=== PATIENT | male | born 1990 | race African-American/Black ===

== ENCOUNTER 2018-06-06 14:54 | Inpatient (IN) | payer BC, SELFPAY ==
[2018-06-06] MEDS ORDERED: CEFAZOLIN 2 GM/50 ML BAG ONE (15:01)
[2018-06-06] MEDS ORDERED: ISOVUE-370 76%-LOCM 1 ML ONE (15:06)
[2018-06-06 15:10] LABS: Actual Bicarbonate (HCO3a) 16.3 mEq/L (22-28); Analyzer IN Cardio ER; Base Excess (BEa) -11.8 mEq/L (-2.0 to +3.0); CO2 Tension 44.9 mmHg (35.0-45.0); Calcium, Ionized 1.17 mmol/L (1.12-1.30); Carboxyhemoglobin (COHb) 2.7 gm% (0.0-3.0); Potassium - ABG Lab 2.99 mmol/L (3.70-5.30)
[2018-06-06 15:25] LABS: #Basophils 0.1 thou/uL (0.0-0.2); #Eosinphils 0.2 thou/uL (0.0-0.7); #Lymphocytes 2.7 thou/uL (1.20-3.40); #Monocytes 0.3 thou/uL (0.11-0.59); #Neutrophils 12.7 thou/uL (1.40-6.50); %Basophils 0.3 % (0.0-1.0); %Lymphocytes 17.2 % (21.0-51.0); %Neutrophils 79.5 % (42.0-75.0); Hemoglobin 15.6 g/dL (14.0-18.0); Mean Corpuscular HGB CONC 33.4 g/dL (32.0-36.0); Mean Corpuscular Hemoglobin 30.1 pg (27.0-31.0); Mean Platelet Volume 8.9 fL (7.4-10.4); Platelet Count 281 thou/uL (130-400); RBC Distribution Width 12.2 % (11.5-14.5); White Blood Cell (WBC) Count 15.9 thou/uL (4.8-10.8)
[2018-06-06 15:31] LABS: INR-International Normal Ratio 1.3; PTT 29.7 SEC (22.9-36.1); Prothrombin Time 16.4 SEC (12.0-14.7)
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
[2018-06-06] MEDS ORDERED: Fentanyl 100 MCG/2 ML VIAL ONE ×2 (15:38→17:44)
[2018-06-06] MEDS ORDERED: fentaNYL Citrate/PF 2,000 MCG in Sodium Chloride 0.9% 60 ML IV SCH ×2 (15:38→15:56)
[2018-06-06] MEDS ORDERED: Ondansetron PF 4 MG/2 ML Vial IVP PRN (15:43)
[2018-06-06] MEDS ORDERED: Dextrose 50% Abboject 50 ML SYRINGE SLOW IVP PRN (15:43)
[2018-06-06] MEDS ORDERED: Dextrose 5% in Water 1,000 ML IV PRN (15:43)
[2018-06-06 15:52] LABS: ALT (SGPT) 807 U/L (8-55); AST (SGOT) 1011 U/L (5-34); Albumin 4.2 g/dL (3.5-5.0); Alkaline Phosphatase 70 U/L (40-150); Anion Gap 22 mmol/L (10-20); BUN (Urea Nitrogen) 4 mg/dL (8.9-20.6); Calc. Creatinine Clearance 0 mL/min (70-130); Calcium 9.1 mg/dL (7.8-10.44); Carbon Dioxide 18 mmol/L (22-29); Chloride 106 mmol/L (98-107); Estimated GFR-MDRD 45; Glucose 173 mg/dL (70-105); Potassium 3.8 mmol/L (3.5-5.1); Protein, Total 7.2 g/dL (6.0-8.3); Sodium 142 mmol/L (136-145)
[2018-06-06 15:53] LABS: Bilirubin Negative (Negative); Blood, Urine Large (Negative); Glucose, Urine (Dipstick) Negative (Negative); Leukocyte Negative (Negative); Nitrite Negative (Negative); Protein, Urine (Dipstick) 30 mg/dL (Neg-Trace); Urobilinogen 0.2 mg/dL (0.2-1.0)
[2018-06-06 15:55] LABS: Clarity Hazy (Clear)
[2018-06-06] MEDS ORDERED: Lorazepam 2 MG/ML VIAL SLOW IVP PRN (15:56)
[2018-06-06] MEDS ORDERED: Propofol 1,000 MG/100 ML VIAL IV PRN (15:56)
[2018-06-06] MEDS ORDERED: Morphine 2 MG/ML SYRINGE SLOW IVP PRN (15:56)
[2018-06-06] MEDS ORDERED: Fentanyl BOLUS 250 ML IVPB PRN (15:56)
[2018-06-06] MEDS ORDERED: DISCONTINUE PREVIOUS NARCOTIC PAIN MEDICATIONS AND BENZODIAZEPINES FS SCH (15:56)
[2018-06-06] MEDS ORDERED: Propofol BOLUS 1,000 MG/100 ML VIAL IV PRN (15:56)
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
[2018-06-06] MEDS ORDERED: Ventilator Sedation Protocol 1 EACH FS SCH (16:00)
[2018-06-06 16:03] LABS: Bacteria/HPF 3+ HPF (None Seen); Hyaline Casts/LPF NONE SEEN LPF (0-3 Hyaline); RBC/HPF GREATER THAN 50-TNTC HPF (0-3); Renal Epithelial 0-3 HPF (0-3); Squamous Epithelial 0-3 HPF (0-3); Transitional Epithelial NONE SEEN HPF (0-3); WBC/HPF 0-3 HPF (0-3)
[2018-06-06] MEDS ORDERED: Midazolam HCl 2 mg/2 ml Vial ONE ×2 (16:04→16:45)
[2018-06-06 16:08] LABS: Actual Bicarbonate (HCO3a) 14.1 mEq/L (22-28); Analyzer IN Cardio ER; CO2 Tension 30.2 mmHg (35.0-45.0); Calcium, Ionized 1.16 mmol/L (1.12-1.30); Carboxyhemoglobin (COHb) 2.3 gm% (0.0-3.0); Hemoglobin (Hb) 16.1 g/dL (14.0-18.0); O2 Tension (PaO2) 249.8 mmHg (80.0-100.0); Potassium - ABG Lab 3.02 mmol/L (3.70-5.30); pH, Arterial 7.29 (7.35-7.45)
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
[2018-06-06 16:14] LABS: Puncture Site RR
[2018-06-06 16:16] LABS: ALV-art Gradient 214.875 (0-20); Puncture Site RR; pH, Arterial 7.18 (7.35-7.45)
[2018-06-06] MEDS ORDERED: Propofol 1,000 MG/100 ML VIAL IV ONE (16:18)
[2018-06-06 16:25] LABS: Hemoglobin 15.9 g/dL (14.0-18.0)
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
--- NOTE | 2018-06-06 17:08 | RAD ---
CHEST 1 VIEW: Date: 06/06/18 HISTORY: Tube placement. COMPARISON: Chest radiograph same day. FINDINGS: Marked interval size decrease of left-sided pneumothorax with interval placement of the thoracostomy tube in good position. Small volume pneumomediastinum. Enteric tube side port below the GE junction. IMPRESSION: 1. Marked interval size decrease of the left pneumothorax. 2. Trace right apical pneumothorax. POS: [facility]
[2018-06-06] MEDS ORDERED: Bupivacaine/Epinephrine 0.25% 30 ML VIAL ONE (17:52)
[2018-06-06] MEDS: Sodium Chloride 0.9% 1,000 ML IV SCH ×2 (17:53→22:34)
[2018-06-06 17:58] VITALS: BMI 24.9
[2018-06-06] MEDS ORDERED: Phenylephrine HCL 10 MG/ML VIAL ONE (18:34)
[2018-06-06] MEDS ORDERED: PHENYLEPHRINE-NS 100 MCG/ML 10 ML SYRINGE ONE ×2 (18:34→22:23)
[2018-06-06] MEDS ORDERED: Promethazine HCl 25 MG/ML VIAL IM/IV PRN (18:48)
[2018-06-06] MEDS ORDERED: Famotidine/PF 20 mg/2ml Vial SLOW IVP SCH (21:00)
[2018-06-06] MEDS ORDERED: CEFAZOLIN/Water 2 GM/20 ML SYRINGE SLOW IVP SCH (22:15)
[2018-06-06] MEDS ORDERED: Sterile Water 10 ML VIAL ONE (22:23)
[2018-06-06] MEDS ORDERED: Vecuronium 10 MG VIAL ONE (22:23)
[2018-06-06 22:26] LABS: Hemoglobin 13.9 g/dL (14.0-18.0)
[2018-06-06] MEDS: CEFAZOLIN 2 GM/50 ML-DEXTROSE 2 GM in Premix Bag 1 BAG IVPB SCH (22:34)
[2018-06-06 22:36] LABS: Actual Bicarbonate (HCO3a) 15.2 mEq/L (22-28); Base Excess (BEa) -9.6 mEq/L (-2.0 to +3.0); CO2 Tension 30.5 mmHg (35.0-45.0); Calcium, Ionized 1.12 mmol/L (1.12-1.30); Carboxyhemoglobin (COHb) 1.2 gm% (0.0-3.0); Hemoglobin (Hb) 13.5 g/dL (14.0-18.0); O2 Tension (PaO2) 100.2 mmHg (80.0-100.0); Potassium - ABG Lab 4.27 mmol/L (3.70-5.30); pH, Arterial 7.32 (7.35-7.45)
[2018-06-06 22:37] LABS: ALV-art Gradient 218.175 (0-20); Puncture Site RBR
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
[2018-06-07] MEDS ORDERED: Sodium Chloride 0.9% 1,000 ML IV SCH (05:15)
[2018-06-07 05:23] LABS: #Lymphocytes 1.4 thou/uL (1.20-3.40); #Monocytes 1.4 thou/uL (0.11-0.59); #Neutrophils 13.7 thou/uL (1.40-6.50); %Basophils 0.1 % (0.0-1.0); %Eosinophils 0.3 % (0.0-10.0); %Lymphocytes 8.2 % (21.0-51.0); %Monocytes 8.5 % (0.0-10.0); %Neutrophils 82.9 % (42.0-75.0); Hemoglobin 13.1 g/dL (14.0-18.0); Mean Corpuscular HGB CONC 33.7 g/dL (32.0-36.0); Mean Corpuscular Hemoglobin 30.3 pg (27.0-31.0); Mean Corpuscular Volume 89.9 fL (78.0-98.0); Platelet Count 240 thou/uL (130-400); RBC Distribution Width 12.4 % (11.5-14.5); Red Blood Cell (RBC) Count 4.34 mill/uL (4.70-6.10); White Blood Cell (WBC) Count 16.6 thou/uL (4.8-10.8)
[2018-06-07] MEDS: CEFAZOLIN 2 GM/50 ML-DEXTROSE 2 GM in Premix Bag 1 BAG IVPB SCH ×3 (05:24→21:47)
[2018-06-07] MEDS: Ampicillin/Sulbactam 3 GM in Sodium Chloride 0.9% 100 ML IVPB SCH ×3 (05:26→17:55)
[2018-06-07 05:58] LABS: ALT (SGPT) 562 U/L (8-55); AST (SGOT) 800 U/L (5-34); Albumin 3.2 g/dL (3.5-5.0); Alkaline Phosphatase 51 U/L (40-150); Anion Gap 17 mmol/L (10-20); BUN (Urea Nitrogen) 13 mg/dL (8.9-20.6); Bilirubin, Total 1.4 mg/dL (0.2-1.2); Calc. Creatinine Clearance 56 mL/min (70-130); Carbon Dioxide 19 mmol/L (22-29); Chloride 111 mmol/L (98-107); Estimated GFR-MDRD 42; Globulin 2.1 g/dL (2.4-3.5); Glucose 157 mg/dL (70-105); Potassium 4.7 mmol/L (3.5-5.1); Protein, Total 5.3 g/dL (6.0-8.3); Sodium 142 mmol/L (136-145)
[2018-06-07 07:11] LABS: Actual Bicarbonate (HCO3a) 20.6 mEq/L (22-28); Base Excess (BEa) -2.9 mEq/L (-2.0 to +3.0); CO2 Tension 31.8 mmHg (35.0-45.0); Carboxyhemoglobin (COHb) 0.7 gm% (0.0-3.0); O2 Tension (PaO2) 121.8 mmHg (80.0-100.0); Potassium - ABG Lab 4.46 mmol/L (3.70-5.30); pH, Arterial 7.43 (7.35-7.45)
[2018-06-07 07:32] LABS: Puncture Site RBA
[2018-06-07] MEDS: Sodium Chloride 0.9% 1,000 ML IV SCH ×2 (09:02→19:40)
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
[2018-06-07] MEDS: Famotidine/PF 20 mg/2ml Vial SLOW IVP SCH (09:05)
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
[2018-06-07 09:40] LABS: Hemoglobin 12.2 g/dL (14.0-18.0)
--- NOTE | 2018-06-07 10:34 | OP ---
DATE OF PROCEDURE: 06/06/2018 PROCEDURE PERFORMED: Left thoracostomy tube placement. Consent is emergent secondary to acute respiratory failure and sedation, and mechanical ventilation. INDICATION: 1. Left pneumothorax. 2. Tension pneumothorax. Performed by Sanya Chacko PA-C DESCRIPTION OF PROCEDURE: The patient was draped and prepped according to the sterile fashion, hand hygiene was observed. The skin was cleaned with 4% chlorhexidine wash. It was not able to completely dry as to the emergent nature of the procedure and the patient's decompensation. Sterile gown and gloves were donned. Appropriate left mid axillary site was selected. A linear incision was made over the rib at the nipple line with a #10 blade. The pleural cavity was entered with Brittaney forceps and a tract was created. I was able to insert my finger and verify a good tract into the thoracic space with no obstructive physiology. At that time, a 36 -Armenian thoracostomy tube was inserted into tract with immediate air return and condensation and the tube was secured with 2 sutures at 14 cm. This was connected to atrium and placed to suction where an active air leak was noted. The tube again was secured in place. Iodoform gauze was placed around this as well as bulky dressing and taped to the chest wall. The patient tolerated the procedure well. Confirmation of tube placement was obtained by CT chest. The patient's hemodynamics immediately improved after the chest tube placement. Estimated blood loss was less than 5 mL from this procedure. The patient tolerated well. Job ID: [id number] MTDD
[2018-06-07] MEDS ORDERED: diphenhydrAMINE 50 MG/ML VIAL IM/IV PRN (13:20)
[2018-06-07] MEDS ORDERED: Zolpidem Tartrate 5 MG TAB PO PRN (13:20)
[2018-06-07] MEDS ORDERED: Naloxone HCl 0.4 mg/ml Vial IV PRN (13:20)
[2018-06-07] MEDS ORDERED: fentaNYL Citrate/PF 2,000 MCG in Sodium Chloride 0.9% 60 ML IV PRN (13:20)
[2018-06-07] MEDS ORDERED: Promethazine HCl 25 MG/ML VIAL IM PRN (13:20)
[2018-06-07] MEDS ORDERED: diphenhydrAMINE 25 MG CAP PO PRN (13:20)
[2018-06-07] MEDS ORDERED: Ondansetron PF 4 MG/2 ML Vial IVP PRN (13:20)
--- NOTE | 2018-06-07 13:20 | RAD ---
LEFT HUMERUS TWO VIEWS: History: ORIF. Comparison: None. FINDINGS: Satisfactory post-operative appearance with intramedullary nail fixation of the mid humeral diaphysea l fracture. IMPRESSION: Satisfactory post-operative appearance. POS: [facility]
--- NOTE | 2018-06-07 13:21 | RAD ---
LEFT FEMUR: History: ORIF. Comparison: None. FINDINGS: Satisfactory post-operative appearance intramedullary nail placement through the femur. IMPRESSION: Satisfactory post-operative appearance. POS: [facility]
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
[2018-06-07 17:04] LABS: Hemoglobin 10.7 g/dL (14.0-18.0)
[2018-06-07] MEDS ORDERED: Lactated Ringer's 1,000 ML IV SCH (17:30)
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
[2018-06-08] MEDS: Ampicillin/Sulbactam 3 GM in Sodium Chloride 0.9% 100 ML IVPB SCH ×4 (00:21→18:14)
[2018-06-08 05:46] LABS: #Lymphocytes 1.1 thou/uL (1.20-3.40); #Monocytes 0.9 thou/uL (0.11-0.59); #Neutrophils 9.2 thou/uL (1.40-6.50); %Basophils 0.2 % (0.0-1.0); %Eosinophils 0.1 % (0.0-10.0); %Lymphocytes 9.7 % (21.0-51.0); %Monocytes 7.8 % (0.0-10.0); %Neutrophils 82.3 % (42.0-75.0); Hemoglobin 9.8 g/dL (14.0-18.0); Mean Corpuscular HGB CONC 33.3 g/dL (32.0-36.0); Mean Corpuscular Hemoglobin 30.1 pg (27.0-31.0); Mean Corpuscular Volume 90.4 fL (78.0-98.0); Mean Platelet Volume 8.6 fL (7.4-10.4); Platelet Count 121 thou/uL (130-400); RBC Distribution Width 12.2 % (11.5-14.5); Red Blood Cell (RBC) Count 3.27 mill/uL (4.70-6.10); White Blood Cell (WBC) Count 11.2 thou/uL (4.8-10.8)
[2018-06-08] MEDS: CEFAZOLIN 2 GM/50 ML-DEXTROSE 2 GM in Premix Bag 1 BAG IVPB SCH ×2 (05:51→14:35)
[2018-06-08] MEDS: Sodium Chloride 0.9% 1,000 ML IV SCH (05:51)
[2018-06-08 05:56] LABS: Anion Gap 9 mmol/L (10-20); BUN (Urea Nitrogen) 20 mg/dL (8.9-20.6); Calc. Creatinine Clearance 88 mL/min (70-130); Calcium 7.7 mg/dL (7.8-10.44); Carbon Dioxide 27 mmol/L (22-29); Chloride 110 mmol/L (98-107); Estimated GFR-MDRD 71; Glucose 136 mg/dL (70-105); Magnesium 1.4 mg/dL (1.6-2.6); Potassium 4.2 mmol/L (3.5-5.1); Sodium 142 mmol/L (136-145)
[2018-06-08] MEDS: Famotidine/PF 20 mg/2ml Vial SLOW IVP SCH (08:30)
[2018-06-08] MEDS ORDERED: Magnesium Sulfate 3 GM in Sodium Chloride 0.9% 100 ML IVPB SCH (09:30)
[2018-06-08] MEDS ORDERED: Potassium Phosphate 15 MMOL in Sodium Chloride 0.9% 250 ML 250 ML IVPB SCH (09:30)
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
[2018-06-08] MEDS ORDERED: Acetaminophen 500 MG TAB PO SCH ×2 (10:00→11:07)
[2018-06-08] MEDS: traMADol HCl 50 MG TAB PO SCH ×3 (10:35→21:14)
--- NOTE | 2018-06-08 10:49 | RAD ---
PORTABLE UPRIGHT FRONTAL CHEST: Date: 06/08/18 COMPARISON: 06/07/18. HISTORY: Respiratory failure. FINDINGS: There is a proximal left humerus fracture, status post open reduction and internal fixation. A stable left chest tube is in place. There is a small to moderate sized pneumothorax on the right, which has enlarged when compared to the 06/06/18 examination. There is hazy perihilar and bibasilar density suggesting nonspecific air space disease/volume loss, l eft greater than right, worsened. IMPRESSION: Worsening hazy nonspecific density in the lung bases, left greater than right. Enlarging right-sided pneumothorax. A call was made to Brennan, at the CCU, who reports that the trauma team is aware of the right-sided pneu mothorax. This phone call was made at 0924 hours on 06/08/18. CODE CR. POS: [facility]
[2018-06-08] MEDS: HYDROcodone/Acetaminophen 10/325 mg Tablet PO PRN (11:35)
[2018-06-08] MEDS: Ketorolac Tromethamine 30 MG/ML VIAL IVP SCH ×2 (13:20→17:39)
[2018-06-08] MEDS: Acetaminophen 325 MG TAB PO SCH ×2 (13:21→17:39)
[2018-06-08] MEDS: Gabapentin 300 MG CAP PO SCH ×2 (14:35→21:14)
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
--- NOTE | 2018-06-08 16:34 | RAD ---
PORTABLE CHEST: 06/08/18 COMPARISON: Earlier exam of same day. HISTORY: Followup of pneumothorax. Heart size appears slightly enlarged. Left sided chest tube remains in place. Left lung appears well expanded. Right sided moderate pneumothorax is present. Given the differences in technique, this is p robably fairly similar to the previous study. IMPRESSION: Stable appearance of the right sided pneumothorax. Stable overall exam. POS: [facility]
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
[2018-06-08] MEDS: Senokot S 8.6-50 MG TAB PO SCH (21:14)
[2018-06-09] MEDS: Acetaminophen 325 MG TAB PO SCH ×4 (00:21→18:37)
[2018-06-09] MEDS: Ampicillin/Sulbactam 3 GM in Sodium Chloride 0.9% 100 ML IVPB SCH ×4 (00:21→18:38)
[2018-06-09] MEDS: Ketorolac Tromethamine 30 MG/ML VIAL IVP SCH ×4 (00:21→18:37)
[2018-06-09] MEDS: HYDROcodone/Acetaminophen 10/325 mg Tablet PO PRN ×2 (00:58→13:10)
[2018-06-09] MEDS: traMADol HCl 50 MG TAB PO SCH ×4 (04:26→21:14)
[2018-06-09 05:19] LABS: ALT (SGPT) 137 U/L (8-55); AST (SGOT) 228 U/L (5-34); Albumin 2.6 g/dL (3.5-5.0); Alkaline Phosphatase 50 U/L (40-150); Anion Gap 8 mmol/L (10-20); BUN (Urea Nitrogen) 13 mg/dL (8.9-20.6); Bilirubin, Total 1.5 mg/dL (0.2-1.2); Calc. Creatinine Clearance 123 mL/min (70-130); Calcium 7.7 mg/dL (7.8-10.44); Carbon Dioxide 30 mmol/L (22-29); Chloride 105 mmol/L (98-107); Estimated GFR-MDRD Greater than 90; Globulin 2.5 g/dL (2.4-3.5); Glucose 113 mg/dL (70-105); Protein, Total 5.1 g/dL (6.0-8.3); Sodium 139 mmol/L (136-145)
[2018-06-09 05:23] LABS: #Eosinphils 0.1 thou/uL (0.0-0.7); #Monocytes 0.4 thou/uL (0.11-0.59); %Basophils 0.3 % (0.0-1.0); %Eosinophils 1.4 % (0.0-10.0); %Lymphocytes 13.7 % (21.0-51.0); %Monocytes 5.8 % (0.0-10.0); %Neutrophils 78.8 % (42.0-75.0); Hemoglobin 8.4 g/dL (14.0-18.0); Mean Corpuscular HGB CONC 33.6 g/dL (32.0-36.0); Mean Corpuscular Hemoglobin 30.7 pg (27.0-31.0); Mean Corpuscular Volume 91.4 fL (78.0-98.0); Mean Platelet Volume 8.5 fL (7.4-10.4); Platelet Count 74 thou/uL (130-400); RBC Distribution Width 11.8 % (11.5-14.5); Red Blood Cell (RBC) Count 2.72 mill/uL (4.70-6.10); White Blood Cell (WBC) Count 7.6 thou/uL (4.8-10.8)
[2018-06-09 05:25] LABS: Phosphorus 1.6 mg/dL (2.3-4.7)
[2018-06-09] MEDS ORDERED: Magnesium Sulfate 3 GM in Sodium Chloride 0.9% 100 ML IVPB SCH (07:45)
[2018-06-09] MEDS ORDERED: Potassium Phosphate 30 MMOL in Sodium Chloride 0.9% 500 ML IVPB SCH (08:00)
[2018-06-09] MEDS: Enoxaparin Sodium 40 MG/0.4 ML SYRINGE SC SCH ×2 (08:27→09:15)
[2018-06-09] MEDS: Polyethylene Glycol 3350 17 GM Packet PO SCH (08:28)
[2018-06-09] MEDS: Gabapentin 300 MG CAP PO SCH ×3 (08:28→20:51)
[2018-06-09] MEDS: Senokot S 8.6-50 MG TAB PO SCH ×2 (08:28→20:51)
[2018-06-09] MEDS: Famotidine/PF 20 mg/2ml Vial SLOW IVP SCH (08:28)
--- NOTE | 2018-06-09 09:47 | RAD ---
PORTABLE SEMIUPRIGHT FRONTAL CHEST RADIOGRAPH: Date: 06/09/18 COMPARISON: 06/08/18 at 1441 hours. HISTORY: Reevaluate pneumothorax. FINDINGS: There is a small to moderate size pneumothorax again noted on the right. Pneumothorax is unchanged wh en compared to 06/08/18 at 1441 hours. Bibasilar air space disease noted, left greater than right. Le ft chest tube in place. Postoperative hardware overlies the left humerus. IMPRESSION: Bibasilar air space disease, left greater than right. Persistent small to moderate right pneumothorax . Left chest tube in place. The trachea is noted to the left of midline, but the pneumothorax does no t appear significantly enlarged and perhaps shift of the mediastinal structures to the left is second marv to volume loss given dense opacity in the left base suggesting left lower lobe consolidation/nixon apse. POS: [facility]
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
[2018-06-10] MEDS: Acetaminophen 325 MG TAB PO SCH ×4 (00:34→17:52)
[2018-06-10] MEDS: Ketorolac Tromethamine 30 MG/ML VIAL IVP SCH ×4 (00:36→17:52)
[2018-06-10] MEDS: Ampicillin/Sulbactam 3 GM in Sodium Chloride 0.9% 100 ML IVPB SCH ×2 (00:37→06:17)
[2018-06-10] MEDS: traMADol HCl 50 MG TAB PO SCH ×4 (05:01→21:32)
[2018-06-10 06:35] LABS: #Eosinphils 0.1 thou/uL (0.0-0.7); #Monocytes 0.6 thou/uL (0.11-0.59); #Neutrophils 4.1 thou/uL (1.40-6.50); %Basophils 0.3 % (0.0-1.0); %Eosinophils 1.8 % (0.0-10.0); %Lymphocytes 17.8 % (21.0-51.0); %Monocytes 10.1 % (0.0-10.0); Hemoglobin 7.9 g/dL (14.0-18.0); Mean Corpuscular HGB CONC 33.6 g/dL (32.0-36.0); Mean Corpuscular Hemoglobin 30.4 pg (27.0-31.0); Mean Corpuscular Volume 90.5 fL (78.0-98.0); Mean Platelet Volume 8.4 fL (7.4-10.4); Platelet Count 76 thou/uL (130-400); RBC Distribution Width 11.7 % (11.5-14.5); White Blood Cell (WBC) Count 5.8 thou/uL (4.8-10.8)
[2018-06-10 06:49] LABS: Anion Gap 10 mmol/L (10-20); BUN (Urea Nitrogen) 11 mg/dL (8.9-20.6); Calc. Creatinine Clearance 153 mL/min (70-130); Calcium 8.2 mg/dL (7.8-10.44); Carbon Dioxide 26 mmol/L (22-29); Chloride 105 mmol/L (98-107); Estimated GFR-MDRD Greater than 90; Glucose 101 mg/dL (70-105); Magnesium 1.7 mg/dL (1.6-2.6); Phosphorus 2.2 mg/dL (2.3-4.7); Potassium 3.7 mmol/L (3.5-5.1); Sodium 137 mmol/L (136-145)
[2018-06-10] MEDS: Senokot S 8.6-50 MG TAB PO SCH ×2 (08:21→21:33)
[2018-06-10] MEDS: Gabapentin 300 MG CAP PO SCH ×3 (08:21→21:33)
[2018-06-10] MEDS: Famotidine/PF 20 mg/2ml Vial SLOW IVP SCH (08:21)
[2018-06-10] MEDS: Polyethylene Glycol 3350 17 GM Packet PO SCH (08:22)
[2018-06-10] MEDS: Enoxaparin Sodium 40 MG/0.4 ML SYRINGE SC SCH (08:30)
--- NOTE | 2018-06-10 09:55 | RAD ---
FRONTAL RADIOGRAPH CHEST: Date: 06/10/18 Time: 0845 hours COMPARISON: 06/09/18 at 0525 hours. HISTORY: Reevaluate pneumothorax. FINDINGS: There is a stable left-sided chest tube. Left pneumothorax has enlarged, now moderate in size, with c omponents involving the medial, superior, and lateral left lung apex, as well as the left costophreni c angle. There is a small apical pneumothorax on the right, improved. There is hazy nonspecific bibasilar air space disease. IMPRESSION: Enlarging left pneumothorax. Interval decrease in size of right pneumothorax. Charge nurse, Miranda Ivy, made aware at 0915 hours on 06/10/18. CODE CR. POS: [facility]
[2018-06-10] MEDS ORDERED: Piperacillin/Tazobactam 3.375 GM in Sodium Chloride 0.9% 100 ML IVPB SCH (12:00)
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
--- NOTE | 2018-06-10 18:11 | RAD ---
[id number] SINGLE VIEW CHEST: Date: 06/10/18 COMPARISON: 06/10/18. HISTORY: Chest tube placement for pneumothorax. FINDINGS: Single view of the chest shows normal sized cardiomediastinal silhouette. There is a left-sided chest tube. There has been reexpansion of the left lung with only a tiny left apical pneumothorax. Atelect asis is seen in the left lung base. Lung markings are not definitely seen in the right apex and a small right apical pneumothorax may als o be present. IMPRESSION: 1. Small left apical pneumothorax. 2. Possible small apical right pneumothorax. POS: [facility]
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
[2018-06-10] MEDS: Ascorbic Acid 500 mg Chewable Tablet PO SCH (21:33)
[2018-06-11] MEDS: Ketorolac Tromethamine 30 MG/ML VIAL IVP SCH ×3 (00:14→11:54)
[2018-06-11] MEDS: Acetaminophen 325 MG TAB PO SCH ×5 (00:14→23:51)
[2018-06-11] MEDS: traMADol HCl 50 MG TAB PO SCH ×4 (04:02→21:01)
[2018-06-11 05:55] LABS: #Eosinphils 0.2 thou/uL (0.0-0.7); #Monocytes 0.6 thou/uL (0.11-0.59); #Neutrophils 3.4 thou/uL (1.40-6.50); %Basophils 0.3 % (0.0-1.0); %Eosinophils 3.3 % (0.0-10.0); %Monocytes 11.3 % (0.0-10.0); Hemoglobin 8.1 g/dL (14.0-18.0); Mean Corpuscular HGB CONC 34.6 g/dL (32.0-36.0); Mean Corpuscular Hemoglobin 31.2 pg (27.0-31.0); Mean Platelet Volume 8.6 fL (7.4-10.4); Platelet Count 112 thou/uL (130-400); RBC Distribution Width 11.7 % (11.5-14.5); White Blood Cell (WBC) Count 5.2 thou/uL (4.8-10.8)
--- NOTE | 2018-06-11 08:19 | RAD ---
PORTABLE CHEST 1 VIEW: Date: 06/11/18 Time: 0543 hours HISTORY: Bilateral pneumothorax. FINDINGS/IMPRESSION: Comparison made with exam from previous day. Left-sided chest tube remains in place. No definite left-sided pneumothorax is seen. A tiny right api joaquín pneumothorax is noted. There is mild opacity at the right lung base. POS: [facility]
[2018-06-11] MEDS: Ascorbic Acid 500 mg Chewable Tablet PO SCH ×2 (08:33→20:07)
[2018-06-11] MEDS: Senokot S 8.6-50 MG TAB PO SCH ×2 (08:33→20:07)
[2018-06-11] MEDS: Gabapentin 300 MG CAP PO SCH ×3 (08:34→20:07)
[2018-06-11] MEDS: Enoxaparin Sodium 40 MG/0.4 ML SYRINGE SC SCH (08:34)
[2018-06-11] MEDS: Ferrous Sulfate 325 MG TAB PO SCH ×2 (08:34→17:51)
[2018-06-11] MEDS: Famotidine/PF 20 mg/2ml Vial SLOW IVP SCH (08:34)
[2018-06-11] MEDS: Polyethylene Glycol 3350 17 GM Packet PO SCH (08:34)
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
[2018-06-11] MEDS: Ibuprofen 600 MG TAB PO SCH (20:07)
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
[2018-06-12] MEDS: traMADol HCl 50 MG TAB PO SCH ×4 (03:17→21:40)
[2018-06-12] MEDS: Acetaminophen 325 MG TAB PO SCH ×4 (05:08→23:48)
[2018-06-12] MEDS: Gabapentin 300 MG CAP PO SCH ×3 (08:11→20:46)
[2018-06-12] MEDS: Ascorbic Acid 500 mg Chewable Tablet PO SCH ×2 (08:11→20:46)
[2018-06-12] MEDS: Ferrous Sulfate 325 MG TAB PO SCH ×2 (08:11→17:09)
[2018-06-12] MEDS: Enoxaparin Sodium 40 MG/0.4 ML SYRINGE SC SCH (08:12)
[2018-06-12] MEDS: Ibuprofen 600 MG TAB PO SCH ×3 (08:12→20:45)
[2018-06-12] MEDS: Famotidine/PF 20 mg/2ml Vial SLOW IVP SCH (08:13)
[2018-06-12] MEDS: Senokot S 8.6-50 MG TAB PO SCH ×2 (08:13→20:46)
[2018-06-12] MEDS: Polyethylene Glycol 3350 17 GM Packet PO SCH (08:14)
--- NOTE | 2018-06-12 09:46 | RAD ---
CHEST 1 VIEW: Date: 06/12/18 HISTORY: Left-sided pneumothorax. COMPARISON: Chest radiograph dated 06/11/18. FINDINGS: Right basilar air space opacity improving. Trace left apical pneumothorax with the lung apex at the l eft second posterior intercostal space. Small right pneumothorax is also present. IMPRESSION: Small biapical pneumothoraces. POS: [facility]
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
[2018-06-13] MEDS: traMADol HCl 50 MG TAB PO SCH ×4 (04:59→22:59)
[2018-06-13] MEDS: Acetaminophen 325 MG TAB PO SCH ×4 (05:00→23:00)
[2018-06-13] MEDS: Ferrous Sulfate 325 MG TAB PO SCH ×2 (08:27→17:30)
[2018-06-13] MEDS: Enoxaparin Sodium 40 MG/0.4 ML SYRINGE SC SCH (08:27)
[2018-06-13] MEDS: Ibuprofen 600 MG TAB PO SCH ×3 (08:27→20:39)
[2018-06-13] MEDS: Polyethylene Glycol 3350 17 GM Packet PO SCH (08:27)
[2018-06-13] MEDS: Senokot S 8.6-50 MG TAB PO SCH ×2 (08:27→20:39)
[2018-06-13] MEDS: Ascorbic Acid 500 mg Chewable Tablet PO SCH ×2 (08:27→20:39)
[2018-06-13] MEDS: Gabapentin 300 MG CAP PO SCH ×3 (08:27→20:39)
[2018-06-13] MEDS: Famotidine 20 MG TAB PO SCH (08:28)
[2018-06-13] MEDS: Piperacillin/Tazobactam 3.375 GM in Sodium Chloride 0.9% 100 ML IVPB SCH ×3 (12:33→23:00)
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
[2018-06-14] MEDS: traMADol HCl 50 MG TAB PO SCH ×4 (04:59→21:16)
[2018-06-14] MEDS: Acetaminophen 325 MG TAB PO SCH ×4 (05:00→23:58)
[2018-06-14] MEDS: Piperacillin/Tazobactam 3.375 GM in Sodium Chloride 0.9% 100 ML IVPB SCH ×4 (05:14→23:57)
[2018-06-14 06:42] LABS: #Eosinphils 0.2 thou/uL (0.0-0.7); #Lymphocytes 1.2 thou/uL (1.20-3.40); #Monocytes 0.7 thou/uL (0.11-0.59); #Neutrophils 4.1 thou/uL (1.40-6.50); %Basophils 0.4 % (0.0-1.0); %Lymphocytes 19.2 % (21.0-51.0); %Monocytes 10.6 % (0.0-10.0); %Neutrophils 66.7 % (42.0-75.0); Hemoglobin 8.1 g/dL (14.0-18.0); Mean Corpuscular HGB CONC 33.4 g/dL (32.0-36.0); Mean Corpuscular Volume 89.8 fL (78.0-98.0); Mean Platelet Volume 7.4 fL (7.4-10.4); Platelet Count 230 thou/uL (130-400); RBC Distribution Width 12.3 % (11.5-14.5); White Blood Cell (WBC) Count 6.2 thou/uL (4.8-10.8)
[2018-06-14] MEDS: Famotidine 20 MG TAB PO SCH (08:37)
[2018-06-14] MEDS: Senokot S 8.6-50 MG TAB PO SCH ×2 (08:37→21:16)
[2018-06-14] MEDS: Gabapentin 300 MG CAP PO SCH ×3 (08:37→21:16)
[2018-06-14] MEDS: Ferrous Sulfate 325 MG TAB PO SCH ×2 (08:37→17:24)
[2018-06-14] MEDS: Ascorbic Acid 500 mg Chewable Tablet PO SCH ×2 (08:37→21:16)
[2018-06-14] MEDS: Ibuprofen 600 MG TAB PO SCH ×3 (08:38→21:16)
[2018-06-14] MEDS: Enoxaparin Sodium 40 MG/0.4 ML SYRINGE SC SCH (08:44)
[2018-06-14] MEDS: Polyethylene Glycol 3350 17 GM Packet PO SCH (08:45)
--- NOTE | 2018-06-14 09:19 | RAD ---
CHEST ONE VIEW: HISTORY: Follow up pneumothorax. COMPARISON: Two days prior. FINDINGS: No significant change in the small left apical pneumothorax. There is also a small right apical pneu mothorax, which has mildly improved. IMPRESSION: Mildly improving right apical pneumothorax. POS: [facility]
[2018-06-14] MEDS ORDERED: Bupivacaine HCl 0.5%/Epinephrine 1:200,000/PF 30 ml Vial ONE (12:36)
[2018-06-14] MEDS ORDERED: Fentanyl 100 MCG/2 ML VIAL ONE ×3 (13:15→15:07)
[2018-06-14] MEDS ORDERED: Midazolam HCl 2 mg/2 ml Vial ONE (13:15)
[2018-06-14] MEDS ORDERED: SUGAMMADEX SODIUM 200 MG/2 ML VIAL ONE (14:31)
[2018-06-14] MEDS ORDERED: hydrALAZINE 20 MG/ML VIAL ONE (15:37)
[2018-06-14] MEDS ORDERED: Fentanyl 100 MCG/2 ML VIAL SLOW IVP PRN (16:30)
[2018-06-14] MEDS: HYDROcodone/Acetaminophen 10/325 mg Tablet PO PRN (16:34)
--- NOTE | 2018-06-14 16:48 | RAD ---
CHEST ONE VIEW: HISTORY: Thoracoscopy. COMPARISON: Radiograph from the same day. FINDINGS: Left apical pneumothorax persists and is small with apex at the level of the second posterior rib. T here is a new layering right pleural effusion. There is subcutaneous emphysema along the left hemith orax. IMPRESSION: 1. New layering moderate-sized right pleural effusion. 2. Small left apical pneumothorax. POS: [facility]
[2018-06-14] MEDS ORDERED: Succinylcholine Chloride 20 MG/ML 10 ml SYRINGE FS ONE (19:51)
[2018-06-14] MEDS ORDERED: Lidocaine 1% PF 5 ML VIAL ONE (19:51)
[2018-06-14] MEDS ORDERED: Esmolol 100 MG/10 ML VIAL ONE (19:51)
[2018-06-14] MEDS ORDERED: PROPOFOL 200 MG/20 ML VIAL ONE (19:51)
--- NOTE | 2018-06-14 21:48 | OP ---
DATE OF PROCEDURE: 06/14/2018 PREOPERATIVE DIAGNOSIS: Left pneumothorax with persistent air leak. POSTOPERATIVE DIAGNOSIS: Left pneumothorax with persistent air leak. PROCEDURE PERFORMED: Left thoracoscopy with mechanical pleurodesis and replacement of chest tube. ANESTHESIA: General endotracheal. ESTIMATED BLOOD LOSS: Minimal. DESCRIPTION OF PROCEDURE: After consent was obtained, the patient was brought to the operating room and placed in supine position on the operating table. Appropriate central line was placed and general endotracheal was induced. Flexible fiberoptic bronchoscopy was performed to confirm endotracheal tube placement. The patient was then placed in the right lateral decubitus position all the time holding in-line traction to his cervical spine. Joints were appropriately padded. SCDs were used. His head was kept in in-line position. Left chest wall was prepped and draped in usual sterile fashion. Two separate incisions from the chest tube incision were made for instrumentation. A 5-mm scope was inserted. Chest was explored. The lung was examined on all its surfaces. There were no blebs. Lung was gently ventilated and there was no evidence of bubbling. There was no subcutaneous emphysema in the mediastinum or around the pericardium. The chest wall was then mechanically abraded. A 20-Chadian chest tube was placed through a small stab incision. Lung was re-expanded to fill the chest cavity nicely. The wounds were then injected with 0.5% Marcaine with epinephrine and closed in layers. The patient was awakened, extubated, and transferred to the recovery room in stable condition. Needle, sponge, and instrument counts were reported as correct at the end of the procedure. Job ID: [id number]
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
[2018-06-15] MEDS: traMADol HCl 50 MG TAB PO SCH ×4 (04:04→21:37)
[2018-06-15] MEDS: Acetaminophen 325 MG TAB PO SCH ×4 (05:25→23:06)
[2018-06-15] MEDS: Piperacillin/Tazobactam 3.375 GM in Sodium Chloride 0.9% 100 ML IVPB SCH ×4 (05:25→23:07)
[2018-06-15] MEDS: Polyethylene Glycol 3350 17 GM Packet PO SCH (08:36)
[2018-06-15] MEDS: Ferrous Sulfate 325 MG TAB PO SCH ×2 (08:37→15:42)
[2018-06-15] MEDS: Senokot S 8.6-50 MG TAB PO SCH ×2 (08:37→20:10)
[2018-06-15] MEDS: Ascorbic Acid 500 mg Chewable Tablet PO SCH ×2 (08:37→20:10)
[2018-06-15] MEDS: Famotidine 20 MG TAB PO SCH (08:37)
[2018-06-15] MEDS: Ibuprofen 600 MG TAB PO SCH ×3 (08:38→20:10)
[2018-06-15] MEDS: Gabapentin 300 MG CAP PO SCH ×3 (08:38→20:10)
[2018-06-15] MEDS: Enoxaparin Sodium 40 MG/0.4 ML SYRINGE SC SCH (08:48)
--- NOTE | 2018-06-15 10:53 | RAD ---
PORTABLE AP CHEST XRAY: DATE: 06/15/2018. HISTORY: Post left thoracoscopy. COMPARISON: 06/14/2018. FINDINGS: Left-sided thoracostomy tube remains in place. No pneumothorax is identified. There is, however, a very tiny persistent right apical pneumothorax. Pleural and parenchymal changes are again seen at th e right lung base likely related to right pleural effusion and atelectasis. Differences in positioni ng of the patient, this is overall similar to the prior study. Cardiac silhouette and pulmonary vasc ulature are within normal limits. Postsurgical changes left proximal humerus are partially imaged. Subcutaneous emphysema is seen on the left. There has been no significant interval change compared t o the prior exam. IMPRESSION: Stable chest including very tiny right apical pneumothorax and right pleural effusion and atelectasis in addition to left-sided thoracostomy tube stable in position. POS: [facility]
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
[2018-06-16] MEDS: traMADol HCl 50 MG TAB PO SCH ×4 (03:36→21:45)
[2018-06-16] MEDS: Piperacillin/Tazobactam 3.375 GM in Sodium Chloride 0.9% 100 ML IVPB SCH ×4 (05:11→23:19)
[2018-06-16] MEDS: Acetaminophen 325 MG TAB PO SCH ×4 (05:11→23:19)
[2018-06-16] MEDS: Lisinopril 2.5 MG TAB PO SCH (08:48)
[2018-06-16] MEDS: Senokot S 8.6-50 MG TAB PO SCH ×2 (08:48→20:42)
[2018-06-16] MEDS: Famotidine 20 MG TAB PO SCH (08:49)
[2018-06-16] MEDS: Gabapentin 300 MG CAP PO SCH ×3 (08:49→20:42)
[2018-06-16] MEDS: Ferrous Sulfate 325 MG TAB PO SCH ×2 (08:50→16:30)
[2018-06-16] MEDS: Enoxaparin Sodium 40 MG/0.4 ML SYRINGE SC SCH (08:50)
[2018-06-16] MEDS: Ibuprofen 600 MG TAB PO SCH ×3 (08:50→20:37)
[2018-06-16] MEDS: Ascorbic Acid 500 mg Chewable Tablet PO SCH ×2 (08:50→20:42)
[2018-06-16] MEDS: Polyethylene Glycol 3350 17 GM Packet PO SCH (09:21)
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
[2018-06-17] MEDS: traMADol HCl 50 MG TAB PO SCH ×4 (03:49→21:20)
[2018-06-17] MEDS: Acetaminophen 325 MG TAB PO SCH ×4 (05:26→23:06)
[2018-06-17] MEDS: Piperacillin/Tazobactam 3.375 GM in Sodium Chloride 0.9% 100 ML IVPB SCH ×4 (05:27→23:06)
[2018-06-17] MEDS: Lisinopril 2.5 MG TAB PO SCH (09:46)
[2018-06-17] MEDS: Senokot S 8.6-50 MG TAB PO SCH ×2 (09:46→20:34)
[2018-06-17] MEDS: Ascorbic Acid 500 mg Chewable Tablet PO SCH ×2 (09:46→20:32)
[2018-06-17] MEDS: Ibuprofen 600 MG TAB PO SCH ×3 (09:47→20:33)
[2018-06-17] MEDS: Ferrous Sulfate 325 MG TAB PO SCH ×2 (09:47→15:58)
[2018-06-17] MEDS: Famotidine 20 MG TAB PO SCH (09:47)
[2018-06-17] MEDS: Enoxaparin Sodium 40 MG/0.4 ML SYRINGE SC SCH (09:48)
[2018-06-17] MEDS: Gabapentin 300 MG CAP PO SCH ×3 (09:48→20:33)
[2018-06-17] MEDS: Polyethylene Glycol 3350 17 GM Packet PO SCH (09:48)
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
[2018-06-18] MEDS: traMADol HCl 50 MG TAB PO SCH ×4 (05:07→21:25)
[2018-06-18] MEDS: Acetaminophen 325 MG TAB PO SCH ×4 (05:08→23:00)
[2018-06-18] MEDS: Piperacillin/Tazobactam 3.375 GM in Sodium Chloride 0.9% 100 ML IVPB SCH ×4 (05:08→23:00)
--- NOTE | 2018-06-18 08:09 | RAD ---
PORTABLE AP CHEST XRAY: DATE: 06/18/2018. HISTORY: Followup pneumothorax. COMPARISON: 06/16/2018. FINDINGS: Left-sided thoracostomy tube remains in place and unchanged in position. No obvious pneumothorax is seen. There is mild linear atelectasis versus scarring at the right lung base. Lungs are otherwise clear. No right-sided pneumothorax is appreciated. Cardiac silhouette and pulmonary vasculature are within normal limits. No other interval change. IMPRESSION: Stable chest, left-sided thoracostomy tube remaining in place, and no pneumothorax is appreciated. POS: [facility]
[2018-06-18] MEDS: Ibuprofen 600 MG TAB PO SCH ×3 (09:27→19:36)
[2018-06-18] MEDS: Ascorbic Acid 500 mg Chewable Tablet PO SCH ×2 (09:27→19:36)
[2018-06-18] MEDS: Enoxaparin Sodium 40 MG/0.4 ML SYRINGE SC SCH (09:27)
[2018-06-18] MEDS: Lisinopril 2.5 MG TAB PO SCH (09:27)
[2018-06-18] MEDS: Ferrous Sulfate 325 MG TAB PO SCH ×2 (09:28→17:51)
[2018-06-18] MEDS: Famotidine 20 MG TAB PO SCH (09:30)
[2018-06-18] MEDS: Gabapentin 300 MG CAP PO SCH ×3 (09:30→19:36)
[2018-06-18] MEDS: Polyethylene Glycol 3350 17 GM Packet PO SCH (09:30)
[2018-06-18] MEDS: Senokot S 8.6-50 MG TAB PO SCH ×2 (09:31→19:36)
--- NOTE | 2018-06-18 17:12 | RAD ---
UPRIGHT PORTABLE CHEST ONE VIEW: 06/18/18 HISTORY: 28-year-old male with history of followup pneumothorax. Patient placed to chest seal. COMPARISON: 06/18/18. FINDINGS: Small residual left sided pneumothorax at the level of the left costophrenic angle and possibly at th e apex. Heart size is normal. No significant new process. IMPRESSION: Left chest tube in place with very small residual left sided pneumothorax. No significant change in a ppearance from prior study. POS: [facility]
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
[2018-06-19] MEDS: traMADol HCl 50 MG TAB PO SCH ×4 (03:03→21:31)
[2018-06-19] MEDS: Acetaminophen 325 MG TAB PO SCH ×4 (05:04→23:05)
[2018-06-19] MEDS: Piperacillin/Tazobactam 3.375 GM in Sodium Chloride 0.9% 100 ML IVPB SCH ×4 (05:04→23:05)
[2018-06-19] MEDS: Lisinopril 2.5 MG TAB PO SCH (08:42)
[2018-06-19] MEDS: Ferrous Sulfate 325 MG TAB PO SCH ×2 (08:43→17:03)
[2018-06-19] MEDS: Ascorbic Acid 500 mg Chewable Tablet PO SCH ×2 (08:43→21:30)
[2018-06-19] MEDS: Ibuprofen 600 MG TAB PO SCH ×3 (08:43→21:31)
[2018-06-19] MEDS: Famotidine 20 MG TAB PO SCH (08:43)
[2018-06-19] MEDS: Gabapentin 300 MG CAP PO SCH ×3 (08:43→21:31)
[2018-06-19] MEDS: Enoxaparin Sodium 40 MG/0.4 ML SYRINGE SC SCH (08:43)
[2018-06-19] MEDS: Polyethylene Glycol 3350 17 GM Packet PO SCH (08:44)
[2018-06-19] MEDS: Senokot S 8.6-50 MG TAB PO SCH ×2 (08:44→21:31)
--- NOTE | 2018-06-19 14:12 | RAD ---
AP VIEW CHEST: 06/19/2018 HISTORY: Left-sided pneumothorax. COMPARISON: 06/18/2018 FINDINGS: AP view chest demonstrates a left-sided chest tube in place. A tiny left apical pneumothorax remains . No evidence of pleural effusion is seen. No definite evidence of pulmonary edema is seen. No oth er significant interval change is noted. IMPRESSION: Residual tiny left apical pneumothorax. POS: [facility]
[2018-06-19] MEDS ORDERED: Iothalamate Meglumine 60% 50 ML VIAL FS ONE (14:42)
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
[2018-06-20] MEDS: traMADol HCl 50 MG TAB PO SCH ×4 (03:24→22:19)
[2018-06-20] MEDS: Acetaminophen 325 MG TAB PO SCH ×3 (05:18→17:01)
[2018-06-20] MEDS: Piperacillin/Tazobactam 3.375 GM in Sodium Chloride 0.9% 100 ML IVPB SCH ×3 (05:18→17:10)
[2018-06-20] MEDS: Ferrous Sulfate 325 MG TAB PO SCH ×2 (08:18→17:01)
[2018-06-20] MEDS: Ibuprofen 600 MG TAB PO SCH ×3 (08:18→20:50)
[2018-06-20] MEDS: Famotidine 20 MG TAB PO SCH (08:19)
[2018-06-20] MEDS: Gabapentin 300 MG CAP PO SCH ×3 (08:19→20:50)
[2018-06-20] MEDS: Ascorbic Acid 500 mg Chewable Tablet PO SCH ×2 (08:19→20:49)
[2018-06-20] MEDS: Lisinopril 2.5 MG TAB PO SCH (08:20)
[2018-06-20] MEDS: Enoxaparin Sodium 40 MG/0.4 ML SYRINGE SC SCH (08:21)
[2018-06-20] MEDS: Polyethylene Glycol 3350 17 GM Packet PO SCH (08:24)
[2018-06-20] MEDS: Senokot S 8.6-50 MG TAB PO SCH ×2 (08:24→22:16)
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
[2018-06-21] MEDS: Acetaminophen 325 MG TAB PO SCH ×3 (00:14→13:24)
[2018-06-21] MEDS: traMADol HCl 50 MG TAB PO SCH ×3 (04:03→15:18)
[2018-06-21] MEDS: Lisinopril 2.5 MG TAB PO SCH (08:07)
[2018-06-21] MEDS: Ferrous Sulfate 325 MG TAB PO SCH (08:07)
[2018-06-21] MEDS: Ascorbic Acid 500 mg Chewable Tablet PO SCH (08:08)
[2018-06-21] MEDS: Ibuprofen 600 MG TAB PO SCH ×2 (08:08→15:18)
[2018-06-21] MEDS: Enoxaparin Sodium 40 MG/0.4 ML SYRINGE SC SCH (08:08)
[2018-06-21] MEDS: Gabapentin 300 MG CAP PO SCH ×2 (08:08→15:18)
[2018-06-21] MEDS: Famotidine 20 MG TAB PO SCH (08:08)
[2018-06-21] MEDS: Polyethylene Glycol 3350 17 GM Packet PO SCH (08:09)
[2018-06-21] MEDS: Senokot S 8.6-50 MG TAB PO SCH (08:09)
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
[2018-06-21 16:14] VITALS: BP 117/73; TEMP 98
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
== END 2018-06-21 17:12 | DRG 956 ==
LOC: ERS 14:54 → CCU 17:25 → SURG B 06-09 13:49
PROVIDERS: ADMIT Specialist; ATTEND Specialist
PROC: 0QSC06Z Reposition Left Lower Femur with Intramedullary Internal Fixation Device, Open Approach (ICD-10-PCS; principal; 2018-06-06)
PROC: 0QS706Z Reposition Left Upper Femur with Intramedullary Internal Fixation Device, Open Approach (ICD-10-PCS; 2018-06-06)
PROC: 0PSG06Z Reposition Left Humeral Shaft with Intramedullary Internal Fixation Device, Open Approach (ICD-10-PCS; 2018-06-06)
PROC: 5A1935Z Respiratory Ventilation, Less than 24 Consecutive Hours (ICD-10-PCS; 2018-06-06)
PROC: 0W9B00Z Drainage of Left Pleural Cavity with Drainage Device, Open Approach (ICD-10-PCS; 2018-06-06)
PROC: 0HQ1XZZ Repair Face Skin, External Approach (ICD-10-PCS; 2018-06-06)
PROC: 0B5P4ZZ Destruction of Left Pleura, Percutaneous Endoscopic Approach (ICD-10-PCS; 2018-06-14)
PROC: 0W9B40Z Drainage of Left Pleural Cavity with Drainage Device, Percutaneous Endoscopic Approach (ICD-10-PCS; 2018-06-14)
DX: S42.302A Unspecified fracture of shaft of humerus, left arm, initial encounter for closed fracture (principal); S72.92XB Unspecified fracture of left femur, initial encounter for open fracture type I or II; S32.402A Unspecified fracture of left acetabulum, initial encounter for closed fracture; J96.01 Acute respiratory failure with hypoxia; S06.0X9A Concussion with loss of consciousness of unspecified duration, initial encounter; S27.0XXA Traumatic pneumothorax, initial encounter; S22.20XA Unspecified fracture of sternum, initial encounter for closed fracture; J90 Pleural effusion, not elsewhere classified; S36.039A Unspecified laceration of spleen, initial encounter; S36.113A Laceration of liver, unspecified degree, initial encounter; N17.9 Acute kidney failure, unspecified; J95.812 Postprocedural air leak; V43.52XA Car driver injured in collision with other type car in traffic accident, initial encounter; Y92.410 Unspecified street and highway as the place of occurrence of the external cause; R40.2421 Glasgow coma scale score 9-12, in the field [EMT or ambulance]; R73.9 Hyperglycemia, unspecified; I45.81 Long QT syndrome; S01.81XA Laceration without foreign body of other part of head, initial encounter; E87.6 Hypokalemia
CPT/HCPCS: 32551; 36415; 36416; 36430; 51702; 70450; 71045; 71260; 72125; 72141; 72170; 72190; 74177; 76001; 80048; 80053; 81003; 81015; 82150; 82805; 83735; 84100; 85025; 85610; 85730; 86850; 86900; 86901; 87040; 87070; 87086; 87205; 89220; 90471; 90686; 93005; 94002; 94003; 94640; 96365; 96374; 96375; 96376; A4216; C1713; C1769; G0008; G0390; G8978-GP-CK; G8978-GP-CN; G8979-GP-CI; G8979-GP-CL; G8987-GO-CK; G8988-GO-CJ; J0295; J0360; J0670; J1650; J1885; J2001; J2250; J2270; J2370; J2543; J2704; J3010; J3475; J7050; J7620; P9016; Q9961; S0028